=== PATIENT | male | born 1940 | race Caucasian/White ===

== ENCOUNTER → 2016-09-17 | Outpatient (CLI) | payer MEDICARE, BC ==
[~2016-09-17] MED LIST: ASCO500C PO; ASCO500T PO; ASPI1TAB69 PO; ASPI81TA11 PO; FERR83TA PO; LIPI10TA PO; LISI10TA3 PO; MULT1TAB84 PO; SLOW160T10 PO; VITATAB11 PO
--- NOTE | 2016-09-19 08:55 | RSPPFT ---
DATE OF PROCEDURE: 09/17/16 COMMENTS: VOLUMES DYNAMIC: FVC and FEV1 normal. STATIC: FRC, RV and TLC normal. FLOWS: FEV1% mildly reduced; FEF 25-75 severely reduced. DIFFUSION: Normal. FLOW VOLUME Terminal airflow obstruction. LOOP: IMPRESSION: Mild obstructive ventilatory defect with no reduction in diffusion and no significant hyperinflation. There is no significant improvement post-bronchodilator.
== END ==
LOC: PHRSP 08:22
PROVIDERS: ATTEND Internal Medicine
DX: J47.9 Bronchiectasis, uncomplicated (principal)
CPT/HCPCS: 94060; 94620; 94726; 94729

== ENCOUNTER → 2016-09-20 | Outpatient (CLI) | payer MEDICARE, BC ==
[2016-09-20 09:42] LABS: APTT (PATIENT) 25.2 SEC (24.3-30.1); PROTHROMBIN TIME - PATIENT 10.6 SEC (9.8-11.6)
[2016-09-20 09:54] LABS: HEMATOCRIT 39.1 % (39.0-51.0); MEAN CELL VOLUME 92.4 FL (80.0-100.0); MEAN CORPUSCULAR HEMOGLOBIN 30.1 PG (27.0-34.0); MEAN CORPUSCULAR HGB CONC 32.6 % (32.0-36.0); PLATELET COUNT 201 TH/MM3 (150-450); RED BLOOD COUNT 4.23 MIL/MM3 (4.50-5.90); RED CELL DISTRIBUTION WIDTH 14.5 % (11.6-17.2); REVIEW FLAG FINAL; WHITE BLOOD COUNT 3.3 TH/MM3 (4.0-11.0)
[2016-09-20 10:10] LABS: BICARBONATE 30.5 MEQ/L (21.0-32.0); POTASSIUM 4.4 MEQ/L (3.5-5.1)
--- NOTE | 2016-09-24 07:45 | EKG ---
Date Performed: 09/20/2016 Time Performed: 09:16:03 PTAGE: 76 years EKG: SINUS BRADYCARDIA BORDERLINE ECG NO PREVIOUS TRACING DOCTOR: Sinan Smiley Interpretating Date/Time 09/24/2016 10:14:31
== END ==
LOC: CPRE 08:48
PROVIDERS: ATTEND Internal Medicine
DX: Z01.810 Encounter for preprocedural cardiovascular examination (principal); Z01.812 Encounter for preprocedural laboratory examination; R00.1 Bradycardia, unspecified; R91.8 Other nonspecific abnormal finding of lung field
CPT/HCPCS: 36415; 80048; 85027; 85610; 85730; 93005

== ENCOUNTER → 2016-09-24 | Day surgery (SDC) | payer MEDICARE, BC ==
--- NOTE | 2016-09-18 15:30 | MB ---
cc: Teri SULLIVAN M.D. DATE OF CONSULTATION 09/11/2016 This is for an outpatient bronchoscopy being scheduled. HISTORY OF THE PRESENT ILLNESS Mr. 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 His symptoms actually date back to May when he presented with cough and congestion and a CT scan revealed some scattered infiltrative densities and small nodules. He was suspected to have an acute infection. He was treated with antibiotics and he did improve. However, the cough never really resolved completely, so he had a PET CT in July which revealed some hypermetabolic foci somewhat concerning for malignancy. He is referred for further evaluation. He did have an old CT back in 2008 which revealed some pleural thickening and calcification but the nodular densities were new as were the infiltrative densities. The patient has really had no other significant symptoms up to this point hemoptysis, purulent sputum, progressive dyspnea. He has never smoked. He did have a serious pneumonia and was hospitalized when he was younger in the but that really has been his only prior pulmonary history of significance. The CT scan suggested that there were some elements of bronchiectasis so we treated him with two weeks of Cipro and then did a followup scan dated August 26. This continues to reveal areas of bronchiectasis waxing and waning. Some of the areas have improved, some of them seem more prominent, really suggest an infectious etiology although with a prior history of prostate cancer malignancy cannot be completely excluded on the basis of the scan. Again up to the present time he has had no other significant chest complaints. He is quite active and walks regularly. FAMILY HISTORY There is a family history of COPD, particularly his mother. PAST MEDICAL HISTORY 1. Prostate cancer diagnosed 2008. 2. Hypertension. 3. He has had an Achilles tendon repair. No other significant prior cardiovascular history. ALLERGIES None. FAMILY HISTORY Father of complications of heart failure in his late 70s. Mother 82, had COPD. A twin brother of suicide and two daughters in good health. SOCIAL HISTORY living with his . They do have cats and a dog at home. Never smoked. Drinks an occasional alcohol. No other significant prior industrial exposures and no current exposures to unusual fumes, dust or gasses. MEDICATIONS 1. Lipitor. 2. Lisinopril. 3. An MDI. 4. Baby aspirin. REVIEW OF SYSTEMS As noted above. PHYSICAL EXAMINATION VITAL SIGNS: 97 degrees, 130/60, pulse is 70 and regular, respirations 16-18, sat 98-99% on room air. HEENT: Sclerae anicteric. Pharynx is clear. NECK: The neck veins are flat. LYMPHATICS: No adenopathy in the neck or supraclavicular region. LUNGS: His chest is entirely clear. No wheezes, rales. HEART: Regular rhythm. No harsh murmur. No audible S3. EXTREMITIES: No edema or cyanosis. DISCUSSION Mr. Morgan presents with an abnormal x-ray in May followed by an abnormal PET CT in July and a follow-up CT now which is really suggestive of bronchiectasis. Infiltrates are waxing and waning. He has difficulty producing much of any sputum so I have suggested a diagnostic bronchoscopy to obtain additional material for culture and cytologic examination. We have reviewed the procedure in simple terms so that he understands what it involves and also discussed potential risks of anesthesia or of a biopsy including although not limited to pneumothorax and bleeding. I have scheduled him for pulmonary functions first and then will follow up with diagnostic bronchoscopy. Further diagnostic and/or therapeutic intervention will depend on results of the initial diagnostic studies and his ongoing clinical course. R. Ramy Sullivan MD RSW/KK /4:35 PM /3:21 PM
[~2016-09-24] VITALS: Ht 175.3 cm; Wt 68.6 kg
[~2016-09-24] MED LIST changes: +LACTATED RINGER'S 1000 ML INJ 1,000 ML ONE; +RESP: ALBUTEROL 2.5 MG/3 ML NEB (PRN) ONE; +RESP: LIDOCAINE HCL 4% PF 5 ML NEB ONE
[2016-09-24 12:53] VITALS: BP 149/66; PULSE 54; RESP 20; TEMP 97.6; O2SAT 100
[2016-09-24 15:10] VITALS: BP 147/69; PULSE 70; RESP 16; TEMP 97.8; O2SAT 100
== END | disposition home or self-care (01) ==
LOC: HSDC 11:59 → HRIP 12:02 → HSDC 12:02
PROVIDERS: ATTEND Internal Medicine
DX: R91.8 Other nonspecific abnormal finding of lung field (principal); I10 Essential (primary) hypertension; Z85.46 Personal history of malignant neoplasm of prostate; Z82.49 Family history of ischemic heart disease and other diseases of the circulatory system
CPT/HCPCS: 94664; G0463; J7120; J7613; 99211

== ENCOUNTER → 2016-10-10 | Day surgery (SDC) | payer MEDICARE, BC ==
--- NOTE | 2016-10-07 16:47 | MB ---
cc: Teri SULLIVAN M.D. DATE OF CONSULTATION 10/07/2016 This is for a bronchoscopy scheduled this October 10. HISTORY OF THE PRESENT ILLNESS Mr. Morgan is a 76-year-old white male, a retired private wealth advisor, who presented with an abnormal CT scan and symptoms which date back to May including cough and congestion. He has some scattered infiltrative densities with small nodules in both lungs and was originally treated with antibiotics and improved. However, when symptoms recurred, he had a PET CT in followup in July which did reveal abnormalities including some scattered hypermetabolic foci. Although there was some concern for malignancy it was also felt that this could be an infectious process. I first saw him in late July and we scheduled him for bronchoscopy initially in August but that had to be rescheduled which we are doing this . He has had no previous hemoptysis. He produces very little phlegm. No progressive dyspnea, although his pulmonary functions do reveal mild airways obstruction. He has not required bronchodilators. Last follow-up CT scan was done August 26 which continued to show some areas of infiltrate with nodularity and again we are proceeding with a diagnostic bronchoscopy to obtain additional specimens particularly for culture. PAST MEDICAL HISTORY 1. Prostate cancer 2008. 2. Hypertension. 3. Achilles tendon rupture with repair. No prior cardiovascular history. ALLERGIES None. FAMILY HISTORY Is reviewed in the prior note from 09/11/2016 that is unchanged. SOCIAL HISTORY Also the same. CURRENT MEDICATIONS 1. Lipitor. 2. Lisinopril. 3. And a baby aspirin. That was discontinued on October 05. PHYSICAL EXAMINATION Will be reviewed again on the day of his procedure. No notable abnormalities were seen on previous exam in August. DISCUSSION Mr. Morgan presents with probable underlying bronchiectasis much less likely that this is malignant but will proceed with a diagnostic bronchoscopy to obtain an additional specimens for culture and cytology. I have reviewed the procedure with him in simple terms, discussed potential complications as well and he is agreeable to proceed. MD ELVIA Ramirez/ANYI /3:04 PM /4:34 PM
[~2016-10-10] VITALS: Ht 175.3 cm; Wt 68.4 kg
[~2016-10-10] MED LIST changes: +*RESP: ALBUTEROL 2.5 MG/3 ML NEB (PRN) PERIprocedural Use ONLY NEB ONE; +CHLORHEXIDINE GLUCONATE 2 % 1 PACK (2 CLOTHS) TOPICAL PRN; +DO NOT ADM ANY ANTICOAGULANT DRUGS PRN; +EPINEPHrine HCL (1:1000) 1 MG/ML VIAL ONE; +INSULIN HUMAN REGULAR 1,000 UNITS/10 ML VIAL SQ PRN; -LACTATED RINGER'S 1000 ML INJ 1,000 ML ONE; +LACTATED RINGER'S 1000 ML IV PRN; +LIDOCAINE HCL 2% 50 ML VIAL ONE; +METOPROLOL TARTRATE 25 MG TAB PO PRN; +ONDANSETRON HCL 4 MG/2 ML VIAL IV PUSH ONE; +POVIDONE IODINE 5% (ANTISEPSIS KIT) 4 APPLICATIONS EACH NARE PRN; +PROPOFOL 200 MG/20 ML AMP IV ONE; +RESP: ALBUTEROL 2.5 MG/3 ML NEB (PRN) INH; +RESP: ALBUTEROL 2.5 MG/3 ML NEB (PRN) NEB; -RESP: ALBUTEROL 2.5 MG/3 ML NEB (PRN) ONE; -RESP: LIDOCAINE HCL 4% PF 5 ML NEB ONE; +RESP: LIDOCAINE HCL 4% TOPICAL 4 ML KIT NEB NEB PRN; +SODIUM CHLOR 0.9% 1000 ML INJ 1,000 ML IV SCH; +SODIUM CHLORID 0.9% 500 ML IV PRN; +SODIUM CHLORIDE 0.9% 20 ML VIAL ONE
[2016-10-10 11:08] VITALS: BP 147/70; PULSE 55; RESP 20; TEMP 98.2; O2SAT 97
[2016-10-10 14:30] VITALS: BP 138/63; PULSE 66; RESP 18; TEMP 97.7; O2SAT 95
--- NOTE | 2016-10-10 22:15 | MP ---
cc: Teri SULLIVAN M.D. DATE OF SURGERY 10/10/16 PROCEDURE Bronchoscopy INDICATION Bilateral pulmonary infiltrates with nodularity, possible bronchiectasis. After informed consent was obtained, the patient underwent diagnostic bronchoscopy with LMA anesthesia. Examination of the larynx was unremarkable. Examination of the trachea down to the level of the mainstem bronchi revealed some mild inflammatory changes and scattered mucous secretions. No blood. No other endobronchial pathology. Examination of the right main stem bronchus, right upper, middle and lower lobes again revealed some mild inflammatory changes but no other endobronchial pathology and scattered purulent secretions. The right middle lobe was cannulated, lavaged and submitted for cultures and cytology. Cytology brushings were also obtained. Examination of the left main stem bronchus, left upper lobe and lower lobe again revealed very mild mucosal inflammatory changes with scattered purulent secretions but no other endobronchial pathology. The left upper lobe was cannulated, lavaged and submitted for cultures and cytology. In addition, a brushing from the left upper lobe was submitted for cytology. In summary, there are some scattered purulent secretions noted consistent with probable chronic infectious process such as bronchiectasis. No other endobronchial pathology, no blood. Multiple specimens are submitted for cultures and cytology. He tolerated the procedure well without apparent complication. He is being transferred to recovery in stable condition. MD ELVIA Ramirez/ /1:09 PM /10:03 PM HARDIK
== END | disposition home or self-care (01) ==
LOC: HSDC 10:19
PROVIDERS: ATTEND Internal Medicine
DX: R91.8 Other nonspecific abnormal finding of lung field (principal); I10 Essential (primary) hypertension; E78.5 Hyperlipidemia, unspecified; Z85.46 Personal history of malignant neoplasm of prostate
CPT/HCPCS: 31622; 87015; 87070; 87102; 87116; 87205; 87206; 88112; 88305; 94640; 94664; J0171; J2405; J7120; J7613; 87107; 87153